=== PATIENT | female | born 1950 | race Caucasian/White ===

== ENCOUNTER 2017-06-04 08:46 | Emergency (ER) | payer SELFPAY ==
[2017-06-04 09:57] VITALS: BP 138/77
--- NOTE | 2017-06-04 10:34 | UC ---
UC General HPI - HPI Summary HPI Summary: pt c/o a head cold for 2 weeks that moved to her chest. last pm R ear pain. + cough, congestion. no cp, sob, fever. - History of Current Complaint Hx Obtained From: Patient Hx Last Menstrual Period: Age 37 yr Onset/Duration: Gradual Onset Timing: Constant Pain Intensity: 5 Associated Signs & Symptoms: Positive: Cough. Negative: Chest Pain, Fever, Headache, Nausea, SOB, Wheezing <Moni Nelson - Last Filed: 06/04/17 10:43> <Heavenly Dockery - Last Filed: 06/04/17 14:18> - History of Current Complaint Chief Complaint: UCRespiratory Stated Complaint: EARS,COLD SXS Time Seen by Provider: 06/04/17 10:18 - Allergy/Home Medications Allergies/Adverse Reactions: Allergies Allergy/AdvReac Type Severity Reaction Status Date / Time No Known Allergies Allergy Verified 06/04/17 09:47 Home Medications: Home Medications Ibuprofen TAB* [Motrin TAB* 400 MG] 400 mg PO Q6H PRN 06/04/17 [History Confirmed 06/04/17] Phenylephrine/Dm/Acetaminop/GG [Mucinex Mduk-Qkr-Lbopqluwsa Lq] 2 tab PO DAILY 06/04/17 [History Confirmed 06/04/17] PMH/Surg Hx/FS Hx/Imm Hx Previously Healthy: Yes - Surgical History Surgical History: Yes Surgery Procedure, Year, and Place: bladder band, gallbladder - Family History Known Family History: Positive: Cardiac Disease - Social History Occupation: Employed Full-time Lives: With Family Alcohol Use: Rare Substance Use Type: None Smoking Status (MU): Never Smoked Tobacco - Immunization History Vaccination Up to Date: Yes <Moni Nelson - Last Filed: 06/04/17 10:43> Review of Systems ENT: Ear Ache - R, Sinus Congestion Respiratory: Cough Is Patient Immunocompromised?: No All Other Systems Reviewed And Are Negative: Yes <Moni Nelson - Last Filed: 06/04/17 10:43> Physical Exam Triage Information Reviewed: Yes Appearance: Well-Appearing Vital Signs: Initial Vital Signs Temp 98.3 F 06/04/17 09:50 Pulse 83 06/04/17 09:50 Resp 20 06/04/17 09:50 BP 138/77 02/21/18 09:50 Pulse Ox 97 06/04/17 09:50 Vital Signs Reviewed: Yes Eye Exam: Normal ENT: Positive: Pharynx normal, TMs normal - L, TM red - R. Negative: Nasal congestion, Nasal drainage Neck: Positive: Supple, Nontender, No Lymphadenopathy Respiratory: Positive: Lungs clear, Normal breath sounds, No respiratory distress, Other: - congested cough Cardiovascular: Positive: RRR, No Murmur Abdomen Description: Positive: Nontender, No Organomegaly, Soft Bowel Sounds: Positive: Present Musculoskeletal: Positive: No Edema Neurological: Positive: Alert Psychological: Positive: Age Appropriate Behavior Skin Exam: Normal <Moni Nelson - Last Filed: 06/04/17 10:43> Vital Signs: Initial Vital Signs Temp 98.3 F 06/04/17 09:50 Pulse 83 06/04/17 09:50 Resp 20 06/04/17 09:50 BP 138/77 06/04/17 09:50 Pulse Ox 97 06/04/17 09:50 <Heavenly Dockery - Last Filed: 06/04/17 14:18> Course/Dx - Course Course Of Treatment: Exam c/w R OM and bronchitis. will tx augmentin and albuterol with close f/u. - Differential Dx - Multi-Symptom Provider Diagnoses: R OM, Bronchitis <Moni Nelson - Last Filed: 06/04/17 10:43> Discharge <Moni Nelson - Last Filed: 06/04/17 10:43> <Heavenly Dockery - Last Filed: 06/04/17 14:18> - Discharge Plan Condition: Stable Disposition: HOME Prescriptions: Albuterol HFA INHALER* [Ventolin HFA Inhaler*] 2 puff INH Q6H 14 Days #1 mdi Amoxicillin/Clavulanate TAB* [Augmentin TAB 875*] 875 mg PO BID 10 Days #20 tab Patient Education Materials: Ear Infection (ED), Acute Bronchitis (ED) Forms: *Work Release Referrals: Missy Allen MD [Medical Doctor] - Attestation Statement User Type: Provider - I was available for consult. This patient was seen by the TAISHA. The patient was not presented to, seen by, or examined by me. Wilbertj <Heavenly Dockery - Last Filed: 06/04/17 14:18>
== END 2017-06-04 10:40 | disposition home or self-care (01) ==
LOC: UCCORT 08:46
DX: H66.91 Otitis media, unspecified, right ear (principal); J40 Bronchitis, not specified as acute or chronic
CPT/HCPCS: 99212; G0463

== ENCOUNTER 2018-05-06 15:58 | Emergency (ER) | payer BC ==
[2018-05-06 16:20] VITALS: BP 137/83
--- NOTE | 2018-05-06 16:57 | UC ---
Respiratory Complaint HPI - HPI Summary HPI Summary: Pt c/o body aches, productive cough, fever, chills, sob X 4 days. - History of Current Complaint Chief Complaint: UCRespiratory Stated Complaint: COUGH,CONGESTION Time Seen by Provider: 05/06/18 16:42 Hx Obtained From: Patient Hx Last Menstrual Period: Age 37 yr ?: No Onset/Duration: Sudden Onset, Lasting Days, Still Present Timing: Intermittent Episodes Severity Initially: Mild Severity Currently: Moderate Pain Intensity: 0 Character: Cough: Productive, Sputum Description: - thick, green and brown Aggravating Factors: Exertion, Deep Breaths, Recumbent Position Alleviating Factors: Nothing Associated Signs And Symptoms: Positive: Fever, Chills, URI, Nasal Congestion - Risk Factors Pulmonary Embolism Risk Factors: Negative Cardiac Risk Factors: Negative Pseudomonas Risk Factors: Negative Tuberculosis Risk Factors: Negative - Allergies/Home Medications Allergies/Adverse Reactions: Allergies Allergy/AdvReac Type Severity Reaction Status Date / Time No Known Allergies Allergy Verified 05/06/18 16:20 Home Medications: Home Medications Diphenhydra/Phenyleph/Acetamin [Cold & Flu Relief Multi-Sym Lq] 180 ml PO DAILY 05/06/18 [History Confirmed 05/06/18] PMH/Surg Hx/FS Hx/Imm Hx Previously Healthy: Yes - Surgical History Surgical History: Yes Surgery Procedure, Year, and Place: bladder band, gallbladder - Family History Known Family History: Positive: Cardiac Disease - Social History Occupation: Retired Lives: With Family Alcohol Use: None Substance Use Type: None Smoking Status (MU): Never Smoked Tobacco Have You Smoked in the Last Year: No - Immunization History Vaccination Up to Date: Yes Review of Systems All Other Systems Reviewed And Are Negative: Yes Constitutional: Positive: Fever, Chills, Fatigue Skin: Positive: Negative Eyes: Positive: Negative ENT: Positive: Sinus Congestion Respiratory: Positive: Shortness Of Breath, Cough Cardiovascular: Positive: Negative Gastrointestinal: Positive: Negative Genitourinary: Positive: Negative Motor: Positive: Negative Neurovascular: Positive: Negative Musculoskeletal: Positive: Myalgia Neurological: Positive: Negative Psychological: Positive: Negative Is Patient Immunocompromised?: No Physical Exam Triage Information Reviewed: Yes Appearance: Ill-Appearing Vital Signs: Initial Vital Signs Temp 97.4 F 05/06/18 16:17 Pulse 76 05/06/18 16:17 Resp 20 05/06/18 16:17 BP 137/83 05/06/18 16:17 Pulse Ox 97 05/06/18 16:17 Vital Signs Reviewed: Yes Eye Exam: Normal ENT: Positive: Nasal congestion Dental Exam: Normal Neck exam: Normal Respiratory Exam: Normal Cardiovascular Exam: Normal Musculoskeletal Exam: Normal Neurological Exam: Normal Psychological Exam: Normal Skin Exam: Normal UC Diagnostic Evaluation - Laboratory O2 Sat by Pulse Oximetry: 97 Respiratory Course/Dx - Differential Dx/Diagnosis Differential Diagnosis/HQI/PQRI: Bronchitis, Sinusitis Provider Diagnosis: Bronchitis Discharge - Sign-Out/Discharge Documenting (check all that apply): Patient Departure All imaging exams completed and their final reports reviewed: No Studies - Discharge Plan Condition: Stable Disposition: HOME Prescriptions: Albuterol HFA INHALER* [Ventolin HFA Inhaler*] 1 - 2 puff INH Q6H PRN #1 mdi PRN Reason: Sob/Wheezing Azithromycin TAB* [Zithromax TAB (Z-SARAH) 250 mg #6 tabs] 2 tab PO .TODAY, THEN 1 DAILY #1 sarah Benzonatate CAP* [Tessalon 100 MG CAP*] 200 mg PO Q8H PRN #30 cap PRN Reason: Cough predniSONE TAB* [Deltasone 10 MG TAB*] 30 mg PO DAILY #12 tab Patient Education Materials: Acute Bronchitis (ED) Referrals: [facility] [Outside] - If Needed No Primary Care Phys,NOPCP [Primary Care Provider] - - Billing Disposition and Condition Condition: STABLE Disposition: Home
== END 2018-05-06 17:11 | disposition home or self-care (01) ==
LOC: UCCORT 15:58
DX: J40 Bronchitis, not specified as acute or chronic (principal)
CPT/HCPCS: 99212; G0463

== ENCOUNTER 2018-05-25 11:12 | Emergency (ER) | payer BC ==
[2018-05-25 11:52] VITALS: BP 141/82
--- NOTE | 2018-05-25 13:09 | UC ---
General HPI - HPI Summary HPI Summary: pt states she was seen here on May 06 and diagnosed with bronchitis. she was tx with a steroid and zithromax. she states she started to improve but it never completely resolved. on 05/20/18, she was at the ER with a sick grandchild who was dx with the flu so she checked in as well do to ongoing head and chest congestion. she states they dx her with the flu based on the grandson's diagnosis. she denies having any fever or body aches. she returns here because the sinus congestion/drainage is now much worse again and is causing sinus pain. the lungs are better. the sinus drainage is purulent. she has self tx with otc cold medications with no relief. - History of Current Complaint Chief Complaint: UCRespiratory Stated Complaint: CONGESTION Time Seen by Provider: 05/25/18 12:58 Hx Obtained From: Patient Hx Last Menstrual Period: Age 37 yr Onset/Duration: Gradual Onset Timing: Constant Pain Intensity: 0 Associated Signs & Symptoms: Positive: Headache - Allergy/Home Medications Allergies/Adverse Reactions: Allergies Allergy/AdvReac Type Severity Reaction Status Date / Time No Known Allergies Allergy Verified 05/25/18 11:51 PMH/Surg Hx/FS Hx/Imm Hx Previously Healthy: Yes - Surgical History Surgical History: Yes Surgery Procedure, Year, and Place: bladder band, gallbladder - Family History Known Family History: Positive: Cardiac Disease - Social History Occupation: Employed Full-time Alcohol Use: Occasionally Substance Use Type: None Smoking Status (MU): Never Smoked Tobacco Have You Smoked in the Last Year: No - Immunization History Vaccination Up to Date: Yes Review of Systems All Other Systems Reviewed And Are Negative: Yes Constitutional: Positive: Negative Skin: Positive: Negative Eyes: Positive: Negative ENT: Positive: Nasal Discharge, Sinus Congestion, Sinus Pain/Tenderness Respiratory: Positive: Negative Cardiovascular: Positive: Negative Gastrointestinal: Positive: Negative Genitourinary: Positive: Negative Motor: Positive: Negative Neurovascular: Positive: Negative Musculoskeletal: Positive: Negative Neurological: Positive: Headache Psychological: Positive: Negative Is Patient Immunocompromised?: No Physical Exam Triage Information Reviewed: Yes Appearance: Well-Appearing Vital Signs: Initial Vital Signs Temp 97.3 F 05/25/18 11:48 Pulse 84 05/25/18 11:48 Resp 19 05/25/18 11:48 BP 141/82 05/25/18 11:48 Pulse Ox 98 02/11/19 11:48 Vital Signs Reviewed: Yes Eyes: Positive: Conjunctiva Clear ENT: Positive: Pharyngeal erythema, TMs normal, Other - Nasal membranes are swollen. Pt has a thick yellow drainage. Frontal sinuses are tender. Neck: Positive: Supple, Nontender, No Lymphadenopathy Respiratory: Positive: Lungs clear, Normal breath sounds, No respiratory distress Cardiovascular: Positive: RRR, No Murmur Abdomen Description: Positive: Nontender, No Organomegaly, Soft Bowel Sounds: Positive: Present Musculoskeletal: Positive: ROM Intact Neurological: Positive: Other: - A&)x3. CN 2-12 grossly intact. Psychological: Positive: Age Appropriate Behavior Skin Exam: Normal Course/Dx - Course Course Of Treatment: No hx HTN, I think BP illness related but will have a recheck on f/u. pt is non toxic. her hx and PE are c/w sinusitis that failed tx with zpak and steroid. pt advised of risk for side effects from repeats antibiotics including c-diff colitis and she is willing to take risk thus I will retreat her with augmentin x 10 days and a medrol dose pack. pt agrees to take a probiotic daily while on the antibiotic. 3 day tx with nasdal decongestant spray also suggested. will refer to [facility] for f/u as well. - Diagnoses Provider Diagnosis: Sinusitis Discharge - Sign-Out/Discharge Documenting (check all that apply): Patient Departure All imaging exams completed and their final reports reviewed: No Studies - Discharge Plan Condition: Stable Disposition: HOME Prescriptions: Amoxicillin/Clavulanate TAB* [Augmentin TAB 875*] 875 mg PO BID 10 Days #20 tab methylPREDNISolone [Medrol Dosepak 4 MG*] 0 mg PO .SEE SARAH INSTRUCTION #1 tab Patient Education Materials: Sinusitis (ED) Forms: *Work Release Referrals: Valerie KenneyValerie [Medical Doctor] - 7 Days Additional Instructions: TAKE A PROBIOTIC DAILY WHILE ON THE ANTIBIOTICS. CONSIDER A NASAL DECONGESTANT SUCH AFRIN. USE PER LABEL FOR ONLY FOR 3 DAYS THEN STOP. - Billing Disposition and Condition Condition: STABLE Disposition: Home
== END 2018-05-25 13:20 | disposition home or self-care (01) ==
LOC: UCCORT 11:12
DX: J32.9 Chronic sinusitis, unspecified (principal)
CPT/HCPCS: 99212; G0463

== ENCOUNTER 2018-06-04 15:49 | Emergency (ER) | payer BC ==
[2018-06-04 16:07] VITALS: BP 99/75
--- NOTE | 2018-06-04 16:28 | ED ---
Skin Complaint - HPI Summary HPI Summary: patient with onset of skin rash on the r ight side of face with some associated pain , recently treated with two courses of prednisone for cough , sinusitis - History of Current Complaint Chief Complaint: UCSkin Time Seen by Provider: 06/04/18 15:58 Stated Complaint: SKIN COMPLAINT Hx Obtained From: Patient Hx Last Menstrual Period: Age 37 yr Onset/Duration: Started Days Ago Timing: Constant Current Severity: Moderate Pain Intensity: 0 Skin Location: Face - Allergy/Home Medications Allergies/Adverse Reactions: Allergies Allergy/AdvReac Type Severity Reaction Status Date / Time No Known Allergies Allergy Verified 06/04/18 16:03 PMH/Surg Hx/FS Hx/Imm Hx Previously Healthy: Yes Endocrine/Hematology History: Denies: Hx Diabetes, Hx Thyroid Disease Cardiovascular History: Denies: Hx Hypertension Respiratory History: Denies: Hx Asthma GI History: Reports: Hx Diverticulosis History: Reports: Other Problems/Disorders - UTI Sensory History: Reports: Hx Contacts or Glasses Opthamlomology History: Reports: Hx Contacts or Glasses - Surgical History Surgery Procedure, Year, and Place: bladder band, gallbladder Infectious Disease History: No Infectious Disease History: Denies: Hx Clostridium Difficile, Hx Hepatitis, Hx Human Immunodeficiency Virus (HIV), Hx of Known/Suspected MRSA, Hx Shingles, Hx Tuberculosis, Hx Known/ Suspected VRE, Hx Known/Suspected VRSA, History Other Infectious Disease, Traveled Outside the in Last 30 Days - Family History Known Family History: Positive: Cardiac Disease - Social History Alcohol Use: None Hx Substance Use: No Substance Use Type: Reports: None Hx Tobacco Use: No Smoking Status (MU): Never Smoked Tobacco Have You Smoked in the Last Year: No Review of Systems Constitutional: Negative Eyes: Negative Positive: Photophobia ENT: Negative Cardiovascular: Negative Respiratory: Negative Skin: Other Positive: Rash - pain in the scalp and face Neurological: Negative All Other Systems Reviewed And Are Negative: Yes Physical Exam Triage Information Reviewed: Yes Vital Signs On Initial Exam: Initial Vitals Temp Pulse Resp BP Pulse Ox 36.2 C 76 20 99/75 97 06/04/18 16:03 06/04/18 16:03 06/04/18 16:03 06/04/18 16:03 06/04/18 16:03 Vital Signs Reviewed: Yes Appearance: Positive: Well-Appearing, Pain Distress Skin: Positive: Warm, Dry - macular papular rash on the right side of face , scalp , tender to the touch, Erythema @ Head/Face: Positive: Scalp - lesions in the scalp Eyes: Positive: Normal ENT: Positive: Normal ENT inspection Neck: Positive: Supple Respiratory/Lung Sounds: Positive: Clear to Auscultation Cardiovascular: Positive: Normal Abdomen Description: Positive: Nontender Diagnostics - Vital Signs Vital Signs Temp Pulse Resp BP Pulse Ox 06/04/18 16:03 36.2 C 76 20 99/75 97 - Laboratory Lab Statement: Any lab studies that have been ordered have been reviewed, and results considered in the medical decision making process. Course/Dx - Diagnoses Provider Diagnoses: Shingles rash Discharge - Sign-Out/Discharge Documenting (check all that apply): Patient Departure All imaging exams completed and their final reports reviewed: No Studies - Discharge Plan Condition: Fair Disposition: HOME Prescriptions: ValACYclovir (*) [Valtrex 1 GM(*)] 1 gm PO TID #21 tab Patient Education Materials: Shingles (ED) Referrals: No Primary Care Phys,NOPCP [Primary Care Provider] - - Billing Disposition and Condition Condition: FAIR Disposition: Home
== END 2018-06-04 16:37 | disposition home or self-care (01) ==
LOC: UCCORT 15:49
DX: B02.9 Zoster without complications (principal)
CPT/HCPCS: 99212; G0463

== ENCOUNTER 2018-09-24 07:54 | Emergency (ER) | payer BC ==
[2018-09-24 08:08] VITALS: BP 123/78
--- NOTE | 2018-09-24 08:29 | UC ---
Skin Complaint HPI - HPI Summary HPI Summary: sores on lips x 3 days the sores are painful , pain is 6 out of 10 , worse with touch and talking better with moisturizers , has been under the sun last week, with some sunburn no fever, no chills, no body aches - History of Current Complaint Chief Complaint: UCGeneralIllness Time Seen by Provider: 09/24/18 08:16 Stated Complaint: SKIN CONCERN ON MOUTH Hx Obtained From: Patient Hx Last Menstrual Period: Age 37 yr Onset/Duration: Gradual Onset, Lasting Days - 3, Still Present Timing: Constant Onset Severity: Moderate Current Severity: Moderate Pain Intensity: 4 Location: Discrete - bilateral lips, upper and lower Character: Swelling, Pain, Redness, Raised, Painful Aggravating Factor(s): Touch Alleviating Factor(s): OTC Creams/Salves Associated Signs & Symptoms: Positive: Tenderness. Negative: Nausea, Vomiting, Fever, Chills, Cough Related History: Other: - sun expossure - Allergy/Home Medications Allergies/Adverse Reactions: Allergies Allergy/AdvReac Type Severity Reaction Status Date / Time No Known Allergies Allergy Verified 09/24/18 08:08 Home Medications: Home Medications Oxybutynin TAB* [Ditropan TAB*] 1 tab PO DAILY 09/24/18 [History Confirmed 09/24] Phendimetrazine Tartrate 2 tab PO BID 09/24/18 [History Confirmed 09/24/18] PMH/Surg Hx/FS Hx/Imm Hx Cardiovascular History: Hypertension - Surgical History Surgical History: Yes Surgery Procedure, Year, and Place: bladder band, gallbladder - Family History Known Family History: Positive: Cardiac Disease - Social History Alcohol Use: None Substance Use Type: None Smoking Status (MU): Never Smoked Tobacco Have You Smoked in the Last Year: No - Immunization History Vaccination Up to Date: Yes Review of Systems All Other Systems Reviewed And Are Negative: Yes Constitutional: Positive: Negative Eyes: Positive: Negative ENT: Positive: Negative Respiratory: Positive: Negative Is Patient Immunocompromised?: No Physical Exam Triage Information Reviewed: Yes Appearance: Well-Appearing, No Pain Distress, Well-Nourished Vital Signs: Initial Vital Signs Temp 97.3 F 09/24/18 08:02 Pulse 75 09/24/18 08:02 Resp 18 09/24/18 08:02 BP 123/78 09/24/18 08:02 Pulse Ox 98 09/24/18 08:02 Vital Signs Reviewed: Yes Eye Exam: Normal Eyes: Positive: Conjunctiva Clear ENT: Positive: Normal ENT inspection, Hearing grossly normal, Pharynx normal Neck: Positive: Supple, Nontender, No Lymphadenopathy Respiratory: Positive: Chest non-tender, Lungs clear, Normal breath sounds Cardiovascular: Positive: RRR, No Murmur, Pulses Normal Skin: Positive: Other - cold sores upper and lower lips, + swelling, erythema, tender Course/Dx - Diagnoses Provider Diagnosis: Herpes labialis Discharge - Sign-Out/Discharge Documenting (check all that apply): Patient Departure All imaging exams completed and their final reports reviewed: No Studies - Discharge Plan Condition: Stable Disposition: HOME Prescriptions: ValACYclovir (*) [Valtrex 500 mg (*)] 500 mg PO BID #10 tab Patient Education Materials: Oral Herpes Simplex Virus Infections (ED) Forms: *Work Release Referrals: Yandel Rollins MD [Primary Care Provider] - If Needed - Billing Disposition and Condition Condition: STABLE Disposition: Home
== END 2018-09-24 08:29 | disposition home or self-care (01) ==
LOC: UCCORT 07:54
DX: B00.1 Herpesviral vesicular dermatitis (principal); I10 Essential (primary) hypertension
CPT/HCPCS: 99212; G0463

== ENCOUNTER 2018-10-10 14:55 | Emergency (ER) | payer BC ==
[2018-10-10 15:06] VITALS: BP 133/85
--- NOTE | 2018-10-10 15:33 | UC ---
Abdominal Pain Female HPI - HPI Summary HPI Summary: 67 yo female with onset last PM of intermittent right flank pain when she has it it is sharp and lasts seconds no n/v no f/c no uti symptoms no URI symptoms normal BM today - History of Current Complaint Chief Complaint: UCAbdominalPain Stated Complaint: LOW RT SIDE PAIN Time Seen by Provider: 10/10/18 15:21 Hx Obtained From: Patient Hx Last Menstrual Period: Age 37 yr Onset/Duration: Sudden Onset, Other - lasts seconds Timing: Intermittent Episodes Lasting: - seconds Severity Initially: Moderate Severity Currently: None Pain Intensity: 0 Pain Scale Used: 0-10 Numeric Location: Other - right flankd Radiates: No Character: Sharp Aggravating Factor(s): Movement - ? Alleviating Factor(s): Spontaneous Resolution Associated Signs and Symptoms: Negative: Diaphoresis, Fever, Cough, Chest Pain, Back Pain, Constipation, Blood in Stool, Urinary Symptoms, Decreased Appetite, Vaginal Bleeding, Vaginal Discharge, Nausea, Vomiting, Diarrhea Female Torso: 1 - pain here Allergies/Adverse Reactions: Allergies Allergy/AdvReac Type Severity Reaction Status Date / Time No Known Allergies Allergy Verified 10/10/18 15:06 PMH/Surg Hx/FS Hx/Imm Hx Previously Healthy: Yes GI/ History: Diverticulitis - Surgical History Surgical History: Yes Surgery Procedure, Year, and Place: bladder band, gallbladder - Family History Known Family History: Positive: Cardiac Disease, Hypertension - Social History Alcohol Use: Rare Substance Use Type: None Smoking Status (MU): Never Smoked Tobacco Have You Smoked in the Last Year: No - Immunization History Vaccination Up to Date: Yes Review of Systems All Other Systems Reviewed And Are Negative: Yes Constitutional: Positive: Negative Skin: Positive: Negative Eyes: Positive: Negative ENT: Positive: Negative Respiratory: Positive: Negative Cardiovascular: Positive: Negative Gastrointestinal: Positive: Other - right flank pain Genitourinary: Positive: Negative Motor: Positive: Negative Neurovascular: Positive: Negative Musculoskeletal: Positive: Negative Neurological: Positive: Negative Psychological: Positive: Negative Physical Exam Triage Information Reviewed: Yes Appearance: Well-Appearing, No Pain Distress, Well-Nourished Vital Signs: Initial Vital Signs Temp 97.6 F 10/10/18 15:02 Pulse 75 10/10/18 15:02 Resp 16 10/10/18 15:02 BP 133/85 10/10/18 15:02 Pulse Ox 96 10/10/18 15:02 Vital Signs Reviewed: Yes Eyes: Positive: Conjunctiva Clear ENT: Positive: Hearing grossly normal. Negative: Nasal congestion, Nasal drainage, Tonsillar swelling, Tonsillar exudate, Sinus tenderness Neck: Positive: Supple, Nontender, No Lymphadenopathy Respiratory: Positive: Lungs clear, Normal breath sounds, No respiratory distress, No accessory muscle use Cardiovascular: Positive: RRR, No Murmur Abdomen Description: Positive: Nontender, No Organomegaly, Soft. Negative: Bruit, CVA Tenderness (R), CVA Tenderness (L), Distended, Guarding, McBurney's Point Tenderness Bowel Sounds: Positive: Present Musculoskeletal: Positive: ROM Intact, No Edema Neurological: Positive: Alert Psychological Exam: Normal Skin Exam: Normal Diagnostics - Laboratory Lab Results: UA + leuk Abd Pain Female Course/Dx - Differential Dx/Diagnosis Provider Diagnosis: Right flank pain, Elevated BP without diagnosis of hypertension Discharge - Sign-Out/Discharge Documenting (check all that apply): Patient Departure All imaging exams completed and their final reports reviewed: No Studies - Discharge Plan Condition: Stable Disposition: HOME Patient Education Materials: Flank Pain (ED) Referrals: Yandel Rollins MD [Primary Care Provider] - 2 Days Additional Instructions: I am unsure of the cause of your flank pain I suggest you go to the ER if the pain becomes constant To ER for fever/vomiting I suggest you see your MD Friday if it has not resolved A urine culture is pending - Billing Disposition and Condition Condition: STABLE Disposition: Home
== END 2018-10-10 15:43 | disposition home or self-care (01) ==
LOC: UCCORT 14:55
DX: R10.9 Unspecified abdominal pain (principal); R03.0 Elevated blood-pressure reading, without diagnosis of hypertension
CPT/HCPCS: 81003; 87086; 99211; G0463

== ENCOUNTER 2019-05-09 09:34 | Emergency (ER) | payer SELFPAY ==
--- OUTSIDE RECORDS SUMMARY | 2019-05-09 10:03 | XMS REPORT ---
:1950 Author Name Diana Dowd Address [address] [place] [address] Care Team Providers Name Role Phone Diana Dowd Unavailable Unavailable PROBLEMS Type Condition ICD9-CM Code [id number] Code Onset Condition SNOMED Code Dates Status Problem Overactive N32.81 Active 477291627 bladder Problem Other dorsalgia M54.89 Active 990335882 Problem Other pruritus L29.8 Active 936123355 Problem Unspecified R32 Active 985760106 urinary incontinence ALLERGIES No Information ENCOUNTERS Encounter Location Date Diagnosis [facility] [address] Apr, OBG[place], [place] [id number] [facility] [address] Jan, [place] [id number] [facility] 103 Dec, [place]BG[place] [id number] [facility] 103 Dec, [place]BG[place], [place] [id number] [facility] 103 Nov, Other dorsalgia M54.89 OBGYN [facility], and Overactive bladder [place] [id number] N32.81 [facility] 103 Nov, OBG[place], [place] [id number] [facility] 103 August, Overactive bladder N32.81 [place] [id number] [facility] 103 Jun, Overactive bladder N32.81 [place]BG[place] [id number] [facility] 103 Jun, [place]BG[place] [id number] [facility] 103 May, [place]BGYN [place] [id number] [facility] 103 Apr, Overactive bladder N32.[place] [id number] [facility] 103 Apr, Encounter for [facility], gynecological examination [place] [id number] (general) (routine) with abnormal findings Z01.411 ; Encounter for screening for malignant neoplasm of cervix Z12.4 ; Encounter for screening mammogram for malignant neoplasm of breast Z12.31 ; Encounter for screening for malignant neoplasm of colon Z12.11 ; Other pruritus L29.8 ; Unspecified urinary incontinence R32 and Overactive bladder N32.81 IMMUNIZATIONS No Known Immunizations SOCIAL HISTORY Never Assessed REASON FOR REFERRAL FUNCTIONAL STATUS PLAN OF CARE VITAL SIGNS MEDICATIONS Medication Instructions Dosage Frequency Start End Duration Status Date Date oxybutynin 5 mg/24 orally once a 1 tab(s) 24h Apr, day(s) Active hours day 2019 phendimetrazine 35 orally 3 times 1 tab(s) 30 day(s) Active mg a day (before meals) Topamax Active PROCEDURES No Known procedures RESULTS No Results REASON FOR VISIT New Refill Request Insurance Providers [facility] Member Patient Patient Patient Patient Patient Subscriber Subscriber Subscriber Group Insurance Plan Plan Plan Plan ID Relationship Address Phone Name Date of ID Name Date of No Type Insurance Insurance Insurance Coverage to Subscriber Address Phone Name Dates [employer] [phone] [place] self [place] [id number] Blue [id number] Blue [place] 0 Cross/Blue [place] Cross/Blue Shield [id number] Shield MEDICAL (GENERAL) HISTORY Type Description Date Surgical History gallbladder 2009 Hospitalization History diverticulitis 2016 Hospitalization History broken leg 1998
--- OUTSIDE RECORDS SUMMARY | 2019-05-09 10:04 | XMS REPORT ---
:1950 Author Name Diana Dowd Address [address] [place] [address] Care Team Providers Name Role Phone Diana Dowd Unavailable Unavailable PROBLEMS Type Condition ICD9-CM Code [id number] Code Onset Condition SNOMED Code Dates Status Problem Overactive N32.81 Active 474879903 bladder Problem Other dorsalgia M54.89 Active 355457367 Problem Other pruritus L29.8 Active 477470242 Problem Unspecified R32 Active 885143635 urinary incontinence ALLERGIES No Information ENCOUNTERS Encounter Location Date Diagnosis [facility] [address] Apr, OBGYN [place], [place] [id number] [facility] 103 Jan, [place] [id number] [facility] 103 Dec, [place] [id number] [facility] 103 Dec, [place] [id number] [facility] 103 Nov, Other dorsalgia M54.89 OBGYN [facility], and Overactive bladder [place] [id number] N32.81 [facility] 103 Nov, [place]BG[place], [place] [id number] [facility] 103 August, Overactive bladder N32.81 [place] [id number] [facility] 103 Jun, Overactive bladder N32.81 [place]BG[place] [id number] [facility] 103 Jun, [place] [id number] [facility] 103 May, [place] [id number] [facility] 103 Apr, Overactive bladder N32.81 [place]BG[place] [id number] [facility] 103 Apr, Encounter for [facility], gynecological examination [place] [id number] (general) (routine) with abnormal findings Z01.411 ; [...] STATUS PLAN OF CARE VITAL SIGNS MEDICATIONS Unknown Medications PROCEDURES No Known procedures RESULTS No Results REASON FOR VISIT Dr. [place] referral - c x 2 - Insurance Providers [facility] Member Patient Patient Patient Patient Patient Subscriber Subscriber Subscriber Group Insurance Plan Plan Plan Plan ID Relationship Address Phone Name Date of ID Name Date of No Type Insurance Insurance Insurance Coverage to Subscriber Address Phone Name Dates [employer] [phone] [employer] self [place] [id number] Blue [id number] 89 Blue [place] 0 Cross/Blue [place] Cross/Blue Shield [id number] Shield MEDICAL (GENERAL) HISTORY Type Description Date Surgical History gallbladder 2010 Hospitalization History diverticulitis 2016 Hospitalization History broken leg 1998
[2019-05-09 10:20] VITALS: BP 108/75
[2019-05-09 10:31] LABS: Influenza B Molecular POSITIVE (Negative)
--- NOTE | 2019-05-09 10:40 | UC ---
Respiratory Complaint HPI - HPI Summary HPI Summary: 68 year old female presents with fever (temp 101 last night), cough,sinus congestion, headache and a rash between her brows. No vomiting nor diarrhea. - History of Current Complaint Chief Complaint: UCGeneralIllness Stated Complaint: FEVER, CONGESTION Time Seen by Provider: 05/09/19 10:05 Hx Last Menstrual Period: Age 37 yr Pain Intensity: 8 - Allergies/Home Medications Allergies/Adverse Reactions: Allergies Allergy/AdvReac Type Severity Reaction Status Date / Time No Known Allergies Allergy Verified 05/09/19 10:10 Home Medications: Home Medications Ibuprofen TAB* [Advil TAB*] 400 mg PO Q6H PRN 05/09/19 [History Confirmed ] PMH/Surg Hx/FS Hx/Imm Hx Previously Healthy: Yes - Surgical History Surgical History: Yes Surgery Procedure, Year, and Place: bladder band, gallbladder. colonoscopy - Family History Known Family History: Positive: Cardiac Disease, Hypertension - Social History Alcohol Use: Rare Substance Use Type: None Smoking Status (MU): Never Smoked Tobacco Have You Smoked in the Last Year: No - Immunization History Vaccination Up to Date: Yes Review of Systems All Other Systems Reviewed And Are Negative: Yes Constitutional: Positive: Fever, Chills, Fatigue Skin: Positive: Rash - dry, flaking between brows ENT: Positive: Sinus Congestion Respiratory: Positive: Cough - dry. Negative: Shortness Of Breath Gastrointestinal: Positive: Negative Genitourinary: Positive: Negative Motor: Positive: Negative Neurovascular: Positive: Negative Musculoskeletal: Positive: Negative Neurological: Positive: Negative Psychological: Positive: Negative Is Patient Immunocompromised?: No Physical Exam Triage Information Reviewed: Yes Appearance: Well-Appearing Vital Signs: Initial Vital Signs Temp 98.5 F 05/09/19 10:12 Pulse 85 05/09/19 10:12 Resp 20 05/09/19 10:12 BP 108/75 05/09/19 10:12 Pulse Ox 95 05/09/19 10:12 Vital Signs Reviewed: Yes Eye Exam: Normal ENT: Positive: Pharynx normal, Nasal congestion, TM dull - on left, normal on right Neck: Positive: Supple, Nontender, No Lymphadenopathy Respiratory: Positive: Lungs clear, Normal breath sounds. Negative: Crackles, Rhonchi, Wheezing Cardiovascular: Positive: RRR, No Murmur Abdomen Description: Positive: Nontender, Soft Musculoskeletal Exam: Normal Neurological Exam: Normal Psychological Exam: Normal Skin: Positive: Rashes - dry, flaky rash on erythematous base between brows. Respiratory Course/Dx - Differential Dx/Diagnosis Provider Diagnosis: Flu, Eczema Discharge ED - Sign-Out/Discharge Documenting (check all that apply): Patient Departure All imaging exams completed and their final reports reviewed: No Studies - Discharge Plan Condition: Stable Disposition: HOME Prescriptions: Oseltamivir CAP* [Tamiflu CAP*] 75 mg PO BID 5 Days #10 cap Patient Education Materials: Influenza (ED) Forms: *Work Release Referrals: Yandel Rollins MD [Primary Care Provider] - Additional Instructions: Your tested positive for influenza B. Take Tamiflu as prescribed. If your fever persists for more than 72 hours, follow-up with your primary care physician. - Billing Disposition and Condition Condition: STABLE Disposition: Home
== END 2019-05-09 11:01 | disposition home or self-care (01) ==
LOC: UCCORT 09:34
DX: J11.1 Influenza due to unidentified influenza virus with other respiratory manifestations (principal); L30.9 Dermatitis, unspecified
CPT/HCPCS: 99212; G0463

== ENCOUNTER 2019-05-22 14:35 | Emergency (ER) | payer SELFPAY ==
[2019-05-22 15:49] VITALS: BP 121/78
--- NOTE | 2019-05-22 16:40 | UC ---
Hand/Wrist HPI - HPI Summary HPI Summary: Pt was shoveling snow, came in the house and was moving too quickly and slipped on the linoleum floor hitting her right wrist and the back of her head, No LOC, denies neck pain. - History Of Current Complaint Chief Complaint: UCUpperExtremity Stated Complaint: S/P FALL, RIGHT WRIST INJURY Time Seen by Provider: 05/22/19 16:33 Hx Obtained From: Patient Hx Last Menstrual Period: Age 37 yr ?: No Onset/Duration: Sudden Onset Severity Initially: Moderate Severity Currently: Mild Pain Intensity: 7 Character Of Pain: Dull, Aching Aggravating Factor(s): Flexion, Extension - Wrist Alleviating Factor(s): Nothing Associated Signs And Symptoms: Positive: Swelling, Bruising - Allergies/Home Medications Allergies/Adverse Reactions: Allergies Allergy/AdvReac Type Severity Reaction Status Date / Time No Known Allergies Allergy Verified 05/22/19 15:49 PMH/Surg Hx/FS Hx/Imm Hx Previously Healthy: Yes Cardiovascular History: Hypertension - Surgical History Surgical History: Yes Surgery Procedure, Year, and Place: bladder band, gallbladder. colonoscopy - Family History Known Family History: Positive: Cardiac Disease, Hypertension - Social History Alcohol Use: Rare Substance Use Type: None Smoking Status (MU): Never Smoked Tobacco Have You Smoked in the Last Year: No - Immunization History Vaccination Up to Date: Yes Review of Systems All Other Systems Reviewed And Are Negative: Yes Skin: Positive: Bruising - Bruising right wrist with mild swelling to lateral aspect, no deformity, Other - Mild "goose egg" to back of head. Is Patient Immunocompromised?: No Physical Exam Triage Information Reviewed: Yes Appearance: Well-Appearing, No Pain Distress, Well-Nourished Vital Signs: Initial Vital Signs Temp 97.4 F 05/22/19 15:43 Pulse 91 05/22/19 15:43 Resp 16 05/22/19 15:43 BP 121/78 05/22/19 15:43 Pulse Ox 98 05/22/19 15:43 Vital Signs Reviewed: Yes Eyes: Positive: Conjunctiva Clear - PERRLA, EOMI ENT: Positive: Hearing grossly normal Neck: Positive: Supple, Nontender - C-Spine non-tender Respiratory: Positive: Chest non-tender, Lungs clear, Normal breath sounds, No respiratory distress, No accessory muscle use Cardiovascular: Positive: RRR, No Murmur, Pulses Normal, Brisk Capillary Refill Musculoskeletal Exam: Normal Musculoskeletal: Positive: Strength Intact, ROM Intact, Other: - Skull intact and non-tender, very small goose egg back of head. Neurological: Positive: Alert, Muscle Tone Normal Psychological Exam: Normal Skin: Positive: Other - Mild swelling lateral right wrist with a small bruise. Hand/Wrist Course/Dx - Course [facility] INDICATION: Right wrist injury. TECHNIQUE: 3 views of the right wrist were obtained. FINDINGS: There is medial and dorsal soft tissue swelling. The bones appear osteopenic and in normal alignment. No fracture is seen. IMPRESSION: SOFT TISSUE SWELLING, NO FRACTURE IS SEEN. IF THE PATIENT'S SYMPTOMS PERSIST RECOMMEND FOLLOW-UP IMAGING. A cock up wrist is applied by the nurse. Head injury precautions discussed with pt who will discuss them with significant other with whom she lives. - Differential Dx/Diagnosis Provider Diagnosis: Right wrist sprain, Contusion of head Discharge ED - Sign-Out/Discharge Documenting (check all that apply): Patient Departure All imaging exams completed and their final reports reviewed: Yes - Discharge Plan Condition: Good Disposition: HOME Patient Education Materials: Skull Fracture in Children (DC), Scalp Contusion in Adults (ED), Wrist Sprain (ED) Referrals: Raymon Louis MD [Medical Doctor] - Yandel Rollins MD [Primary Care Provider] - Additional Instructions: Wrist splint for comfort, may remove as needed. Ice to wrist and head intermittently, Tylenol for pain. Follow up with the Orthopedist in 5-6 days if continued wrist pain, go to the ER if you have any change in your mental status , headache which is worsening, vomiting. - Billing Disposition and Condition Condition: GOOD Disposition: Home
--- NOTE | 2019-05-22 17:37 | UC ---
- Progress Note Progress Note: This patient did not have a pediatric skull fracture. Course/Dx - Diagnoses Provider Diagnoses: Right wrist sprain, Contusion of head Discharge ED - Sign-Out/Discharge Documenting (check all that apply): Post-Discharge Follow Up All imaging exams completed and their final reports reviewed: Yes - Discharge Plan Condition: Good Disposition: HOME Patient Education Materials: Scalp Contusion in Adults (ED), Wrist Sprain (ED) Referrals: Raymon Louis MD [Medical Doctor] - Yandel Rollins MD [Primary Care Provider] - Additional Instructions: Wrist splint for comfort, may remove as needed. Ice to wrist and head intermittently, Tylenol for pain. Follow up with the Orthopedist in 5-6 days if continued wrist pain, go to the ER if you have any change in your mental status , headache which is worsening, vomiting. - Billing Disposition and Condition Condition: GOOD Disposition: Home
== END 2019-05-22 17:01 | disposition home or self-care (01) ==
LOC: UCCORT 14:35
DX: S63.501A Unspecified sprain of right wrist, initial encounter (principal); I10 Essential (primary) hypertension; S00.93XA Contusion of unspecified part of head, initial encounter; M79.89 Other specified soft tissue disorders; W01.0XXA Fall on same level from slipping, tripping and stumbling without subsequent striking against object, initial encounter; Y92.9 Unspecified place or not applicable
CPT/HCPCS: 99213; G0463